=== PATIENT | male | born 1965 | race Caucasian/White ===

== ENCOUNTER 2023-03-31 07:47 | Inpatient (IN) | payer OTHER ==
[~2023-03-31] VITALS: Ht 193 cm; Wt 129.3 kg
[2023-03-31] VITALS (7 sets, daily range): BP systolic 91–97; BP diastolic 62–71; PULSE 82–91; RESP 18–21; TEMP 98.2–98.5; O2SAT 95–100
[2023-03-31 08:08] LABS: BASOPHILS # (AUTO) 0.1 (0.0-0.1); BASOPHILS % 0.3 % (0.0-1.0); EOSINOPHILS % 0.1 % (0.0-6.0); HEMATOCRIT 37.7 % (38.2-49.6); HEMOGLOBIN 13.2 g/dL (14.0-18.0); LYMPHOCYTES # (AUTO) 1.4 (1.0-3.2); LYMPHOCYTES % 8.1 % (18.0-39.1); MEAN CORPUSCULAR HEMOGLOBIN 31.9 pg (28-32); MEAN CORPUSCULAR VOLUME 91.1 fL (81-99); MONOCYTES # (AUTO) 2.1 (0.2-0.8); NEUTROPHILS # (AUTO) 13.7 (2.1-6.9); NEUTROPHILS % 77.4 % (38.7-80.0); PLATELET COUNT 186 x10e3/uL (140-360); RED BLOOD COUNT 4.14 x10e6/uL (4.3-5.7); RED CELL DISTRIBUTION WIDTH 14.8 % (11.7-14.4); WHITE BLOOD COUNT 17.71 x10e3/uL (4.8-10.8)
[2023-03-31 08:42] LABS: ALBUMIN/GLOBULIN RATIO 0.6 (0.8-2.0); ANION GAP 15.5 mmol/L (8-16); CREATININE, SERUM 1.88 mg/dL (0.72-1.25); POTASSIUM 4.5 mmol/L (3.5-5.1)
[2023-03-31 09:44] LABS: CLARITY,URINE TURBID (CLEAR); COLOR,URINE YELLOW (YELLOW); KETONES,URINE NEGATIVE (NEGATIVE); LEUKOCYTE ESTERASE ,URINE NEGATIVE (NEGATIVE); NITRITE,URINE NEGATIVE (NEGATIVE); PROTEIN,URINE DIPSTICK >=300 (NEGATIVE)
[2023-03-31 09:45] LABS: BACTERIA,URINE FEW /HPF; EPITHELIAL CELLS,URINE FEW /LPF; RBC,URINE >50 /HPF (0-5)
[2023-03-31 09:46] LABS: WBC,URINE (MAN) >50 /HPF (0-5)
[2023-03-31] MEDS ORDERED: ASPIRIN 81 MG CHEW TAB PO ONE (10:00)
[2023-03-31 10:30] LABS: INR 1.8
[2023-03-31 10:31] LABS: PARTIAL THROMBOPLASTIN TIME 39.2 seconds (23.8-35.5)
[2023-03-31] MEDS ORDERED: ACETAMINOPHEN 325 MG TAB PO ONE (10:45)
[2023-03-31] MEDS ORDERED: ONDANSETRON HCL INJ 2MG/ML 2ML 2 MG/ML VIAL IV PRN (11:45)
[2023-03-31] MEDS ORDERED: FUROSEMIDE INJ 10 MG/ML 4 ML VIAL IV ONE ×2 (11:45→17:00)
[2023-03-31] MEDS ORDERED: HYDRALAZINE HCL 20 MG/ML VIAL IV PRN (11:45)
[2023-03-31] MEDS ORDERED: ALBUTEROL/IPRATROPIUM 3 ML NEB NEB ONE (12:15)
[2023-03-31] MEDS: ALBUTEROL/IPRATROPIUM 3 ML NEB NEB SCH ×3 (12:57→23:00)
[2023-03-31] MEDS ORDERED: DEXTROSE 50% SYRINGE 50 ML IV PRN (13:15)
[2023-03-31] MEDS ORDERED: MELOXICAM7.5 MG PO (14:09)
[2023-03-31] MEDS ORDERED: OZEMPIC0.25 MG/02 SQ (14:09)
[2023-03-31] MEDS ORDERED: FARXIGA10 MG PO (14:09)
[2023-03-31] MEDS ORDERED: NADOLOL80 MG PO (14:09)
[2023-03-31] MEDS ORDERED: LYRICA150 MG PO ×2 (14:09)
[2023-03-31] MEDS ORDERED: NEURONTIN300 MG PO (14:09)
[2023-03-31] MEDS ORDERED: METFORMIN HCL500 MG PO (14:09)
[2023-03-31] MEDS ORDERED: ATORVASTATIN CA10 MG PO (14:09)
[2023-03-31] MEDS ORDERED: MULTI-VITAMIN1 EACH PO (14:09)
[2023-03-31] MEDS ORDERED: ZESTRIL2.5 MG PO (14:09)
[2023-03-31] MEDS ORDERED: FUROSEMIDE40 MG PO (14:09)
[2023-03-31] MEDS ORDERED: BACLOFEN10 MG PO (14:09)
[2023-03-31] MEDS ORDERED: PROVENTIL HFA6.7 GM INH (14:09)
[2023-03-31] MEDS ORDERED: SULFAMETHOXAZOLE-TMP PO (14:09)
[2023-03-31] MEDS ORDERED: tylenol #3 PO (14:09)
[2023-03-31] MEDS ORDERED: CYMBALTA30 MG PO (14:09)
[2023-03-31] MEDS ORDERED: ELIQUIS5 MG PO (14:09)
[2023-03-31] MEDS ORDERED: Morphine 2mg Syringe 2 MG/ML SYR IV ONE (14:45)
[2023-03-31] MEDS ORDERED: GABAPENTIN 300 MG CAP PO PRN (16:00)
[2023-03-31] MEDS: INSULIN REGULAR, HUMAN 100 UNIT/1 ML SQ SCH ×2 (16:26→20:33)
[2023-03-31] MEDS: APIXABAN 5 MG TABLET PO SCH (16:35)
[2023-03-31] MEDS: ACETAMINOPHEN 325 MG TAB PO PRN (17:54)
[2023-03-31] MEDS: ACETAMINOPHEN/CODEINE 300MG - 30MG TAB PO PRN (22:53)
[2023-04-01] VITALS (13 sets, daily range): BP systolic 101–122; BP diastolic 65–77; PULSE 64–100; RESP 16–22; TEMP 97.5–99.1; O2SAT 93–100
[2023-04-01] MEDS: ALBUTEROL/IPRATROPIUM 3 ML NEB NEB SCH ×6 (03:00→23:00)
[2023-04-01] MEDS: ACETAMINOPHEN 325 MG TAB PO PRN ×2 (04:51→15:21)
[2023-04-01 06:10] LABS: BASOPHILS # (AUTO) 0.1 (0.0-0.1); BASOPHILS % 0.9 % (0.0-1.0); EOSINOPHILS % 0.1 % (0.0-6.0); HEMATOCRIT 39.4 % (38.2-49.6); HEMOGLOBIN 13.6 g/dL (14.0-18.0); LYMPHOCYTES # (AUTO) 1.2 (1.0-3.2); LYMPHOCYTES % 8.8 % (18.0-39.1); MEAN CORPUSCULAR HEMOGLOBIN 33.8 pg (28-32); MEAN CORPUSCULAR HGB CONC 34.5 g/dL (31-35); MONOCYTES # (AUTO) 1.2 (0.2-0.8); MONOCYTES % 8.5 % (4.4-11.3); NEUTROPHILS # (AUTO) 11.1 (2.1-6.9); NEUTROPHILS % 80.5 % (38.7-80.0); PLATELET COUNT 162 x10e3/uL (140-360); RED BLOOD COUNT 4.02 x10e6/uL (4.3-5.7); RED CELL DISTRIBUTION WIDTH 16.6 % (11.7-14.4); WHITE BLOOD COUNT 13.84 x10e3/uL (4.8-10.8)
[2023-04-01 06:37] LABS: ANION GAP 18.2 mmol/L (8-16); CALCIUM 9.1 mg/dL (8.4-10.2); CREATININE, SERUM 1.69 mg/dL (0.72-1.25); POTASSIUM 5.2 mmol/L (3.5-5.1)
[2023-04-01] MEDS ORDERED: FUROSEMIDE INJ 10 MG/ML 4 ML VIAL IV SCH (08:00)
[2023-04-01] MEDS: MULTIVITAMINS/MINERALS TAB PO SCH (08:56)
[2023-04-01] MEDS: APIXABAN 5 MG TABLET PO SCH ×2 (08:57→16:56)
[2023-04-01] MEDS: ATORVASTATIN 10 MG TAB PO SCH (08:57)
[2023-04-01] MEDS: (Dapagliflozin Propanediol (Farxiga) 10 MG) PO SCH (09:00)
[2023-04-01] MEDS: INSULIN REGULAR, HUMAN 100 UNIT/1 ML SQ SCH ×4 (09:04→21:13)
[2023-04-01] MEDS ORDERED: SOD POLYSTYRENE SULFONATE SUSP 15 GM/60 ML BTL PO ONE (13:00)
[2023-04-01] MEDS: ACETAMINOPHEN/CODEINE 300MG - 30MG TAB PO PRN (20:44)
[2023-04-01] MEDS ORDERED: MELATONIN 5 MG TABLET PO PRN (21:00)
[2023-04-01] MEDS: INSULIN GLARGINE 100 UNITS/ML VIAL SQ SCH (21:15)
[2023-04-02] VITALS (15 sets, daily range): BP systolic 107–139; BP diastolic 69–93; PULSE 10–133; RESP 16–20; TEMP 98.2–99.2; O2SAT 94–99
[2023-04-02] MEDS: ALBUTEROL/IPRATROPIUM 3 ML NEB NEB SCH ×6 (03:00→22:49)
[2023-04-02 07:25] LABS: BASOPHILS # (AUTO) 0.1 (0.0-0.1); BASOPHILS % 0.7 % (0.0-1.0); EOSINOPHILS % 0.1 % (0.0-6.0); HEMATOCRIT 35.4 % (38.2-49.6); HEMOGLOBIN 12.2 g/dL (14.0-18.0); LYMPHOCYTES # (AUTO) 1.1 (1.0-3.2); LYMPHOCYTES % 9.2 % (18.0-39.1); MEAN CORPUSCULAR HEMOGLOBIN 31.7 pg (28-32); MEAN CORPUSCULAR HGB CONC 34.5 g/dL (31-35); MEAN CORPUSCULAR VOLUME 91.9 fL (81-99); MONOCYTES # (AUTO) 0.9 (0.2-0.8); MONOCYTES % 7.8 % (4.4-11.3); NEUTROPHILS # (AUTO) 9.5 (2.1-6.9); NEUTROPHILS % 81.7 % (38.7-80.0); PLATELET COUNT 172 x10e3/uL (140-360); RED BLOOD COUNT 3.85 x10e6/uL (4.3-5.7); RED CELL DISTRIBUTION WIDTH 14.6 % (11.7-14.4); WHITE BLOOD COUNT 11.61 x10e3/uL (4.8-10.8)
[2023-04-02 08:01] LABS: ALBUMIN 2.5 g/dL (3.5-5.0); ALBUMIN/GLOBULIN RATIO 0.5 (0.8-2.0); ANION GAP 15.9 mmol/L (8-16); CALCIUM 8.6 mg/dL (8.4-10.2); CREATININE, SERUM 1.44 mg/dL (0.72-1.25); POTASSIUM 3.9 mmol/L (3.5-5.1)
[2023-04-02] MEDS: ATORVASTATIN 10 MG TAB PO SCH (08:37)
[2023-04-02] MEDS: MULTIVITAMINS/MINERALS TAB PO SCH (08:37)
[2023-04-02] MEDS: APIXABAN 5 MG TABLET PO SCH ×2 (08:37→16:48)
[2023-04-02] MEDS: NADOLOL 40 MG TAB PO SCH (08:38)
[2023-04-02] MEDS: INSULIN REGULAR, HUMAN 100 UNIT/1 ML SQ SCH ×4 (08:43→21:02)
[2023-04-02] MEDS: (Dapagliflozin Propanediol (Farxiga) 10 MG) PO SCH (09:00)
[2023-04-02] MEDS ORDERED: FUROSEMIDE INJ 10 MG/ML 4 ML VIAL IV SCH (09:00)
[2023-04-02] MEDS: ACETAMINOPHEN/CODEINE 300MG - 30MG TAB PO PRN ×2 (12:14→20:57)
[2023-04-02] MEDS ORDERED: ONDANSETRON HCL 4 MG ORAL DISINTEGRATING TAB PO PRN (13:15)
[2023-04-02] MEDS: FUROSEMIDE 40 MG TAB PO SCH (16:48)
[2023-04-02] MEDS: INSULIN GLARGINE 100 UNITS/ML VIAL SQ SCH (21:01)
[2023-04-03] VITALS (12 sets, daily range): BP systolic 103–135; BP diastolic 77–90; PULSE 70–81; RESP 15–20; TEMP 97.8–98.8; O2SAT 95–99
[2023-04-03] MEDS: ALBUTEROL/IPRATROPIUM 3 ML NEB NEB SCH ×5 (03:00→23:13)
[2023-04-03] MEDS: ACETAMINOPHEN 325 MG TAB PO PRN (03:56)
[2023-04-03 06:37] LABS: BASOPHILS # (AUTO) 0.1 (0.0-0.1); BASOPHILS % 0.8 % (0.0-1.0); EOSINOPHILS # (AUTO) 0.1 (0.0-0.4); EOSINOPHILS % 0.4 % (0.0-6.0); HEMATOCRIT 36.6 % (38.2-49.6); HEMOGLOBIN 13.4 g/dL (14.0-18.0); LYMPHOCYTES # (AUTO) 1.8 (1.0-3.2); LYMPHOCYTES % 12.6 % (18.0-39.1); MEAN CORPUSCULAR HEMOGLOBIN 33.8 pg (28-32); MEAN CORPUSCULAR HGB CONC 36.6 g/dL (31-35); MEAN CORPUSCULAR VOLUME 92.4 fL (81-99); MONOCYTES # (AUTO) 1.6 (0.2-0.8); NEUTROPHILS # (AUTO) 10.5 (2.1-6.9); NEUTROPHILS % 74.6 % (38.7-80.0); PLATELET COUNT 155 x10e3/uL (140-360); RED BLOOD COUNT 3.96 x10e6/uL (4.3-5.7); RED CELL DISTRIBUTION WIDTH 14.8 % (11.7-14.4); WHITE BLOOD COUNT 14.07 x10e3/uL (4.8-10.8)
[2023-04-03 07:01] LABS: CALCIUM 8.8 mg/dL (8.4-10.2); CREATININE, SERUM 1.11 mg/dL (0.72-1.25)
[2023-04-03] MEDS: ATORVASTATIN 10 MG TAB PO SCH (08:59)
[2023-04-03] MEDS: NADOLOL 40 MG TAB PO SCH (08:59)
[2023-04-03] MEDS: FUROSEMIDE 40 MG TAB PO SCH (08:59)
[2023-04-03] MEDS: APIXABAN 5 MG TABLET PO SCH ×2 (08:59→17:31)
[2023-04-03] MEDS: MULTIVITAMINS/MINERALS TAB PO SCH (08:59)
[2023-04-03] MEDS: INSULIN REGULAR, HUMAN 100 UNIT/1 ML SQ SCH ×5 (09:00→22:47)
[2023-04-03] MEDS: (Dapagliflozin Propanediol (Farxiga) 10 MG) PO SCH (09:00)
[2023-04-03] MEDS: MEROPENEM 1 GM in SODIUM CHLORIDE 0.9% 100 ML IV SCH ×2 (13:46→22:32)
[2023-04-03] MEDS ORDERED: IOPAMIDOL 370 MG/ML 100 ML INFUS..BTL INJ ONE (18:02)
[2023-04-03] MEDS ORDERED: MELOXICAM 7.5 MG TAB PO PRN ×2 (18:30→19:30)
[2023-04-03] MEDS ORDERED: BACLOFEN 10 MG TAB PO PRN (18:30)
[2023-04-03] MEDS: ACETAMINOPHEN/CODEINE 300MG - 30MG TAB PO PRN (20:17)
[2023-04-03] MEDS: INSULIN GLARGINE 100 UNITS/ML VIAL SQ SCH ×2 (20:18→22:47)
[2023-04-04] VITALS (10 sets, daily range): BP systolic 114–122; BP diastolic 70–81; PULSE 62–73; RESP 16–20; TEMP 97.3–98.2; O2SAT 95–100
[2023-04-04] MEDS: ALBUTEROL/IPRATROPIUM 3 ML NEB NEB SCH ×4 (02:28→15:06)
[2023-04-04] MEDS: ACETAMINOPHEN 325 MG TAB PO PRN (04:04)
[2023-04-04] MEDS: MEROPENEM 1 GM in SODIUM CHLORIDE 0.9% 100 ML IV SCH ×2 (05:46→14:42)
[2023-04-04 06:14] LABS: HEMOGLOBIN 12.9 g/dL (14.0-18.0); MEAN CORPUSCULAR HEMOGLOBIN 31.7 pg (28-32); MEAN CORPUSCULAR HGB CONC 34.9 g/dL (31-35); MEAN CORPUSCULAR VOLUME 90.9 fL (81-99); PLATELET COUNT 172 x10e3/uL (140-360); RED BLOOD COUNT 4.07 x10e6/uL (4.3-5.7); RED CELL DISTRIBUTION WIDTH 14.4 % (11.7-14.4); WHITE BLOOD COUNT 13.42 x10e3/uL (4.8-10.8)
[2023-04-04 06:41] LABS: ALBUMIN 2.7 g/dL (3.5-5.0); ALBUMIN/GLOBULIN RATIO 0.6 (0.8-2.0); ANION GAP 13.1 mmol/L (8-16); CALCIUM 8.8 mg/dL (8.4-10.2); CREATININE, SERUM 1.09 mg/dL (0.72-1.25); POTASSIUM 4.1 mmol/L (3.5-5.1)
[2023-04-04] MEDS: INSULIN REGULAR, HUMAN 100 UNIT/1 ML SQ SCH ×2 (07:30→11:30)
[2023-04-04 08:51] LABS: EOSINOPHILS % (MANUAL) 1 % (0-7); LYMPHOCYTES % (MANUAL) 8 % (19-48); MONOCYTES % (MANUAL) 7 % (3.4-9.0); NEUTROPHILS % (MANUAL) 83 % (40-74); PLATELET ESTIMATE ADEQUATE; PLATELET MORPHOLOGY COMMENT NORMAL
[2023-04-04 08:52] LABS: RBC MORPHOLOGY COMMENT NORMAL
[2023-04-04] MEDS: NADOLOL 40 MG TAB PO SCH (09:00)
[2023-04-04] MEDS: (Dapagliflozin Propanediol (Farxiga) 10 MG) PO SCH (09:00)
[2023-04-04] MEDS: FUROSEMIDE 40 MG TAB PO SCH (09:24)
[2023-04-04] MEDS: MULTIVITAMINS/MINERALS TAB PO SCH (09:24)
[2023-04-04] MEDS: ATORVASTATIN 10 MG TAB PO SCH (09:24)
[2023-04-04] MEDS: APIXABAN 5 MG TABLET PO SCH (09:24)
[2023-04-04] MEDS ORDERED: CORGARD40 MG PO (11:57)
[2023-04-04] MEDS ORDERED: FUROSEMIDE40 MG PO (11:57)
[2023-04-07] MEDS ORDERED: NON-FORMULARY MEDICATION (Semaglutide (Ozempic) 0.25 MG) SQ SCH (09:00)
== END 2023-04-04 17:45 | disposition home health service (06) | DRG 871 ==
LOC: ER 07:58 → ERHOLD 09:49 → MED/SURG3 13:44
PROVIDERS: ADMIT Internal Medicine; ATTEND Internal Medicine
PROC: 02HV33Z Insertion of Infusion Device into Superior Vena Cava, Percutaneous Approach (ICD-10-PCS; 2023-03-29)
PROC: 3E0F7SF Introduction of Other Gas into Respiratory Tract, Via Natural or Artificial Opening (ICD-10-PCS; principal; 2023-04-01)
PROC: B548ZZA Ultrasonography of Superior Vena Cava, Guidance (ICD-10-PCS; 2023-04-03)
DX: A41.9 Sepsis, unspecified organism (principal); I50.21 Acute systolic (congestive) heart failure; J96.01 Acute respiratory failure with hypoxia; N39.0 Urinary tract infection, site not specified; N17.9 Acute kidney failure, unspecified; E87.1 Hypo-osmolality and hyponatremia; Z16.12 Extended spectrum beta lactamase (ESBL) resistance; N12 Tubulo-interstitial nephritis, not specified as acute or chronic; E87.20 Acidosis, unspecified; I42.9 Cardiomyopathy, unspecified; R65.20 Severe sepsis without septic shock; E87.5 Hyperkalemia; R31.0 Gross hematuria; I11.0 Hypertensive heart disease with heart failure; I48.91 Unspecified atrial fibrillation; M19.90 Unspecified osteoarthritis, unspecified site; G47.30 Sleep apnea, unspecified; E66.01 Morbid (severe) obesity due to excess calories; E11.9 Type 2 diabetes mellitus without complications; B96.20 Unspecified Escherichia coli [E. coli] as the cause of diseases classified elsewhere; M47.816 Spondylosis without myelopathy or radiculopathy, lumbar region; Z20.822 Contact with and (suspected) exposure to COVID-19; Z68.34 Body mass index [BMI] 34.0-34.9, adult
CPT/HCPCS: 36415; 36569; 71045; 71046; 74177; 80048; 80053; 81001; 82550; 82948; 83605; 83880; 83935; 84300; 84484; 85007; 85025; 85027; 85610; 85730; 87040; 87071; 87086; 87186; 87205; 93005; 93306; 94640; 94799; 99285; J0696; J1815; J1940; J2185; J2270; J2405; J7050; Q9967; U0002

== ENCOUNTER 2024-06-29 11:27 | Emergency (ER) | payer OTHER ==
[~2024-06-29] VITALS: Ht 193 cm; Wt 104.9 kg
[~2024-06-29 11:27] MED LIST: ATORVASTATIN CA10 MG PO; BACLOFEN10 MG PO; CORGARD40 MG PO; CYMBALTA30 MG PO; ELIQUIS5 MG PO; FARXIGA10 MG PO; FUROSEMIDE40 MG PO; LYRICA150 MG PO; MELOXICAM7.5 MG PO; METFORMIN HCL500 MG PO; MULTI-VITAMIN1 EACH PO; NADOLOL80 MG PO; NEURONTIN300 MG PO; OZEMPIC0.25 MG/02 SQ; PROVENTIL HFA6.7 GM INH; SULFAMETHOXAZOLE-TMP PO; ZESTRIL2.5 MG PO; tylenol #3 PO
[2024-06-29] MEDS: ONDANSETRON HCL INJ 2MG/ML 2ML 2 MG/ML VIAL IV STA (12:37)
[2024-06-29] MEDS: FAMOTIDINE 20 MG/2 ML VIAL IV STA (12:37)
[2024-06-29] MEDS: DICYCLOMINE HCL 20 MG/2 ML VIAL IM ONE (12:37)
[2024-06-29] MEDS: SODIUM CHLORIDE 0.9% 1000ML 1,000 ML IV SCH (12:38)
[2024-06-29] MEDS ORDERED: DANTRIUM25 MG PO (13:12)
[2024-06-29 18:30] VITALS: PULSE 78; RESP 16; TEMP 98.2; O2SAT 94
== END 2024-06-29 19:02 | disposition other institution (70) ==
LOC: FSED 11:41
DX: R10.84 Generalized abdominal pain (principal); J90 Pleural effusion, not elsewhere classified; I31.39 Other pericardial effusion (noninflammatory); R19.7 Diarrhea, unspecified; E86.0 Dehydration; R11.0 Nausea; R94.31 Abnormal electrocardiogram [ECG] [EKG]
CPT/HCPCS: 74176; 80053; 81003; 83880; 93005; 99283; J0500; J2405; J7030

== ENCOUNTER 2025-01-20 19:31 | Inpatient (IN) | payer OTHER ==
[~2025-01-20] VITALS: Ht 193 cm; Wt 98.4 kg
[~2025-01-20 19:31] MED LIST changes: +DANTRIUM25 MG PO
[2025-01-20 20:28] VITALS: RESP 17; TEMP 98.5
[2025-01-20 21:03] LABS: BASOPHILS % 0.4 % (0.0-1.0); EOSINOPHILS % 1.3 % (0.0-6.0); LYMPHOCYTES % 8.3 % (18.0-39.1); MONOCYTES % 14.7 % (4.4-11.3); NEUTROPHILS % 74.9 % (38.7-80.0); RED CELL DISTRIBUTION WIDTH 19.1 % (11.7-14.4)
[2025-01-20] MEDS: SODIUM CHLORIDE 0.9% 1000ML 1,000 ML IV STA (21:20)
[2025-01-20] MEDS: ONDANSETRON HCL INJ 2MG/ML 2ML 2 MG/ML VIAL IV STA (21:20)
[2025-01-20] MEDS: Morphine 4mg INJECTION 4 MG/ML INJ IV STA (21:20)
[2025-01-20 21:22] LABS: EST GLOMERULAR FILTRATION RATE 89.0 ML/MIN (>=60)
[2025-01-20 21:43] LABS: LEUKOCYTE ESTERASE ,URINE NEGATIVE (NEGATIVE); PROTEIN,URINE DIPSTICK TRACE (NEGATIVE); URINE UROBILINOGEN 1 mg/dL (0.2 - 1)
[2025-01-20 21:50] LABS: EPITHELIAL CELLS,URINE FEW /LPF
[2025-01-20] MEDS ORDERED: IOPAMIDOL 370 MG/ML 100 ML INFUS..BTL INJ ONE (22:13)
[2025-01-20 23:43] VITALS: PULSE 65; RESP 16; O2SAT 96
[2025-01-21] VITALS (22 sets, daily range): BP systolic 92–113; BP diastolic 48–81; PULSE 64–94; RESP 16–28; TEMP 97.5–100.3; O2SAT 93–100
[2025-01-21] MEDS ORDERED: SIMETHICONE 80 MG CHEW PO PRN (00:15)
[2025-01-21] MEDS ORDERED: BENZONATATE 100 MG CAP PO PRN (00:15)
[2025-01-21] MEDS ORDERED: HYDRALAZINE HCL 20 MG/ML VIAL IV PRN (00:15)
[2025-01-21] MEDS ORDERED: DEXTROSE 50% SYRINGE 50 ML IV PRN (00:15)
[2025-01-21] MEDS ORDERED: ALBUTEROL/IPRATROPIUM 3 ML NEB NEB PRN (00:15)
[2025-01-21] MEDS ORDERED: LIDOCAINE 4% PATCH TP PRN (00:15)
[2025-01-21] MEDS: BENZOCAINE 20% SPR 60 ML CAN MT STA (00:15)
[2025-01-21] MEDS: Morphine 4mg INJECTION 4 MG/ML INJ IV PRN (01:29)
[2025-01-21] MEDS: SODIUM CHLORIDE 0.9% 1000ML 1,000 ML IV SCH (01:33)
[2025-01-21] MEDS ORDERED: PANTOPRAZOLE SOD 40 MG TABEC PO SCH (07:30)
[2025-01-21] MEDS ORDERED: CYMBALTA30 MG (07:31)
[2025-01-21] MEDS ORDERED: TYLENOL325 MG PO (07:34)
[2025-01-21] MEDS ORDERED: SEMAGLUTID0.5 MG/0.1 SUBD (07:37)
[2025-01-21 08:07] LABS: BASOPHILS % 0.4 % (0.0-1.0); EOSINOPHILS % 1.4 % (0.0-6.0); LYMPHOCYTES % 8.2 % (18.0-39.1); MONOCYTES % 13.9 % (4.4-11.3); NEUTROPHILS % 75.6 % (38.7-80.0); RED CELL DISTRIBUTION WIDTH 19.1 % (11.7-14.4)
[2025-01-21] MEDS: ONDANSETRON HCL INJ 2MG/ML 2ML 2 MG/ML VIAL IV PRN (08:17)
[2025-01-21 08:23] LABS: INR 1.6
[2025-01-21 08:32] LABS: EST GLOMERULAR FILTRATION RATE 98.0 ML/MIN (>=60)
[2025-01-21] MEDS: FUROSEMIDE INJ 10 MG/ML 4 ML VIAL IV SCH (10:05)
[2025-01-21] MEDS: ENOXAPARIN SOD INJ 40 MG/0.4 ML SYR SC SCH (16:30)
[2025-01-21 18:22] LABS: BASOPHILS % 0.4 % (0.0-1.0); EOSINOPHILS % 0.9 % (0.0-6.0); LYMPHOCYTES % 7.1 % (18.0-39.1); MONOCYTES % 13.6 % (4.4-11.3); NEUTROPHILS % 77.6 % (38.7-80.0); RED CELL DISTRIBUTION WIDTH 19.4 % (11.7-14.4)
[2025-01-21] MEDS: ACETAMINOPHEN 325 MG TAB PO PRN (18:25)
[2025-01-21 18:32] LABS: ABG BASE EXCESS 7.0 mmol/L (-2 - 3); ABG HCO3 29 mmol/L (22-26); ABG OXYGEN SATURATION 96.0 % (95-98); ABG PCO2 34 mmHg (35-45); ABG PH 7.54 (7.35-7.45); ABG PO2 72 mmHg (80-105); ABG TCO2 30
[2025-01-21 18:40] LABS: EST GLOMERULAR FILTRATION RATE 79.0 ML/MIN (>=60)
[2025-01-21] MEDS: SODIUM CHLORIDE 0.9% 1000ML 1,000 ML IV ONE (20:03)
[2025-01-21] MEDS: Vancomycin IV 1.25 GM in SODIUM CHLORIDE 0.9% 250ML 250 ML IV STA (20:21)
[2025-01-21] MEDS: DOCUSATE SODIUM 100 MG CAP PO PRN (21:22)
[2025-01-21] MEDS: Vancomycin IV 500 MG ONE (23:56)
[2025-01-22] VITALS (22 sets, daily range): BP systolic 80–116; BP diastolic 55–95; PULSE 38–95; RESP 6–32; TEMP 97.7–99; O2SAT 90–100
[2025-01-22] MEDS: DIPHENHYDRAMINE HCL 25 MG CAP PO PRN (01:35)
[2025-01-22] MEDS: BISACODYL 5 MG TAB EC PO ONE ×2 (01:51→03:05)
[2025-01-22] MEDS: METOCLOPRAMIDE HCL 10 MG/2ML VIAL IV SCH (05:02)
[2025-01-22 07:20] LABS: BODY FLUID APPEARANCE SL.CLOUDY; BODY FLUID COLOR YELLOW; BODY FLUID TYPE PLEURAL; WBC,BODY FLUID 987 cells/uL
[2025-01-22 09:45] LABS: LYMPHOCYTES,BODY FLUID 3 %; MONO/MACROPHG,BODY FLUID 3 %; NEUTROPHILS,BODY FLUID 94 %; TOTAL CELLS COUNTED (DIFF) 100
[2025-01-23] VITALS (17 sets, daily range): BP systolic 102–123; BP diastolic 62–77; PULSE 61–81; RESP 12–26; TEMP 98–98.9; O2SAT 95–100
[2025-01-23 07:48] LABS: BASOPHILS % 0.4 % (0.0-1.0); EOSINOPHILS % 0.6 % (0.0-6.0); LYMPHOCYTES % 7.1 % (18.0-39.1); MONOCYTES % 16.6 % (4.4-11.3); NEUTROPHILS % 74.8 % (38.7-80.0); RED CELL DISTRIBUTION WIDTH 19.1 % (11.7-14.4)
[2025-01-23 08:16] LABS: EST GLOMERULAR FILTRATION RATE 94.0 ML/MIN (>=60)
[2025-01-23] MEDS: APIXABAN 5 MG TABLET PO SCH (08:26)
[2025-01-23] MEDS: POTASSIUM CHLORIDE 20 MEQ TAB CR PO PRN (08:26)
[2025-01-23] MEDS: POTASSIUM CHLORIDE 20 MEQ TAB CR PO STA ×2 (10:26→14:12)
[2025-01-23] MEDS: FUROSEMIDE INJ 10 MG/ML 4 ML VIAL IV SCH (11:12)
[2025-01-23 14:01] LABS: HEPATITIS A ANTIBODY IGM (P) Negative
[2025-01-23 14:02] LABS: HEPATITIS B CORE IGM (P) Negative; HEPATITIS B SURFACE AG (P) Negative
[2025-01-23] MEDS: MELATONIN 5 MG TABLET PO PRN (20:18)
[2025-01-23] MEDS: SODIUM CHLORIDE 0.9% 250ML 250 ML ONE (23:06)
[2025-01-24] VITALS (12 sets, daily range): BP systolic 105–111; BP diastolic 62–77; PULSE 58–78; RESP 17–21; TEMP 97.6–98.6; O2SAT 93–99
[2025-01-24] MEDS: POTASSIUM CHLORIDE 20 MEQ TAB CR PO STA (01:49)
[2025-01-24] MEDS: DULOXETINE HCL 30 MG DELAYED RELEASE PO SCH (01:50)
[2025-01-24 06:23] LABS: BASOPHILS % 0.5 % (0.0-1.0); EOSINOPHILS % 1.6 % (0.0-6.0); LYMPHOCYTES % 9.7 % (18.0-39.1); MONOCYTES % 17.0 % (4.4-11.3); NEUTROPHILS % 70.6 % (38.7-80.0); RED CELL DISTRIBUTION WIDTH 19.2 % (11.7-14.4)
[2025-01-24 07:13] LABS: EST GLOMERULAR FILTRATION RATE 87.0 ML/MIN (>=60)
[2025-01-24] MEDS: NADOLOL 40 MG TAB PO SCH (08:45)
[2025-01-25] VITALS (7 sets, daily range): BP systolic 102–114; BP diastolic 62–75; PULSE 63–75; RESP 17–20; TEMP 97–98.9; O2SAT 93–98
[2025-01-25] MEDS ORDERED: BELLADONNA ALK/PHENOBARBITAL 5 ML UDC ONE (02:03)
[2025-01-25] MEDS: DONNATAL/LIDOCAINE/MAALOX 30 ML SUSP PO STA (02:18)
[2025-01-25] MEDS: LIDOCAINE VISC 2% SOLN 15 ML UDC ONE (02:24)
[2025-01-25] MEDS: MAGNESIUM/ALUMINUM/SIMETHICONE 30 ML UDC ONE (02:25)
[2025-01-25 09:00] LABS: TOTAL PROTEIN,BODY FLUID 2.6 g/dL
[2025-01-25] MEDS: BUMETANIDE 1 MG TAB PO SCH (12:14)
== END 2025-01-25 19:00 | disposition other institution (70) | DRG 919 ==
LOC: ER 19:37 → ERHOLD 23:07 → MED/SURG 01-21 01:19 → ICU 01-21 19:39 → MED/SURG3 01-23 17:14
PROVIDERS: ADMIT Internal Medicine; ATTEND Internal Medicine
DX: T85.79XA Infection and inflammatory reaction due to other internal prosthetic devices, implants and grafts, initial encounter (principal); G93.41 Metabolic encephalopathy; I50.33 Acute on chronic diastolic (congestive) heart failure; I42.1 Obstructive hypertrophic cardiomyopathy; J90 Pleural effusion, not elsewhere classified; I50.32 Chronic diastolic (congestive) heart failure; I48.20 Chronic atrial fibrillation, unspecified; E87.20 Acidosis, unspecified; E11.9 Type 2 diabetes mellitus without complications; I11.0 Hypertensive heart disease with heart failure; G47.33 Obstructive sleep apnea (adult) (pediatric); M51.369 Other intervertebral disc degeneration, lumbar region without mention of lumbar back pain or lower extremity pain; K59.00 Constipation, unspecified; R12 Heartburn; D64.9 Anemia, unspecified; I27.20 Pulmonary hypertension, unspecified; R10.9 Unspecified abdominal pain; B95.8 Unspecified staphylococcus as the cause of diseases classified elsewhere; E78.5 Hyperlipidemia, unspecified; E66.9 Obesity, unspecified; K74.60 Unspecified cirrhosis of liver; Z79.84 Long term (current) use of oral hypoglycemic drugs; Z79.85 Long-term (current) use of injectable non-insulin antidiabetic drugs; Z79.01 Long term (current) use of anticoagulants; Z87.440 Personal history of urinary (tract) infections; Z88.8 Allergy status to other drugs, medicaments and biological substances; Z68.34 Body mass index [BMI] 34.0-34.9, adult
CPT/HCPCS: 36415; 36600; 70450; 74177; 80048; 80053; 81001; 82140; 82550; 82805; 82948; 83605; 83615; 83690; 84157; 84484; 85025; 85610; 85730; 87040; 87070; 87086; 87186; 87205; 89051; 93005; 93306; 94799; 99252; 99284; J1650; J1938; J2270; J2405; J2470; J2543; J2765; J3370; J3373; J7030; J7050; Q9967